=== PATIENT | male | born 1985 | race American Indian/Alaskan Native ===

== ENCOUNTER 2017-03-23 16:07 | Emergency (ER) | payer OTHER ==
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
[2017-03-23] MEDS ORDERED: FLEXERIL PO ONE (20:54)
[2017-03-23] MEDS ORDERED: TYLENOL #3 PO ONE (20:54)
[2017-03-23 21:18] LABS: Hematocrit 43.4 % (35.5-45.6); Hemoglobin 14.9 gm/dl (11.8-15.2); Mean Corpuscular HGB Conc 34 % (32-34); Mean Corpuscular Hemoglobin 29 pg (28-32); Mean Corpuscular Volume 85 fl (84-94); Platelet Count 258 K/mm3 (140-440); Red Blood Count 5.11 M/mm3 (3.65-5.03); Red Cell Distribution Width 13.8 % (13.2-15.2)
[2017-03-23 21:27] LABS: Anion Gap 17 mmol/L; BUN/Creatinine Ratio 10; Blood Urea Nitrogen 8 mg/dL (9-20); Calcium 9.1 mg/dL (8.4-10.2); Carbon Dioxide 25 mmol/L (22-30); Chloride 105.1 mmol/L (98-107); Glucose 125 mg/dL (75-100); Potassium 3.8 mmol/L (3.6-5.0); Sodium 143 mmol/L (137-145)
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
[2017-03-24] MEDS ORDERED: NORCO 7.5/325 PO ONE (01:40)
[2017-03-24 03:58] VITALS: BP 112/70
== END 2017-03-24 03:26 | disposition home or self-care (01) ==
LOC: ED 16:07
DX: S39.92XA Unspecified injury of lower back, initial encounter (principal); R51 Headache; X58.XXXA Exposure to other specified factors, initial encounter; Y93.9 Activity, unspecified; Y92.9 Unspecified place or not applicable; Y99.9 Unspecified external cause status
CPT/HCPCS: 36415; 70450; 71260; 72040; 72100; 72125; 74177; 80048; 85027; 99284; Q9967